=== PATIENT | male | born 1940 | race Hispanic/Latino ===

== ENCOUNTER 2020-07-31 12:35 | Outpatient (CLI) | payer MEDICARE, MEDICAID ==
[2020-07-31 14:14] LABS: Anion Gap 14 mmol/L (10-20); BUN (Urea Nitrogen) 17 mg/dL (8.4-25.7); Calc. Creatinine Clearance 0 mL/min (70-130); Calcium 9.3 mg/dL (7.8-10.44); Carbon Dioxide 28 mmol/L (23-31); Chloride 101 mmol/L (98-107); Glucose 193 mg/dL (83-110); Potassium 4.3 mmol/L (3.5-5.1); Sodium 139 mmol/L (136-145)
[2020-07-31 14:15] LABS: PTT 25.9 sec (22.0-33.0); Prothrombin Time 10.3 sec (9.5-12.1)
[2020-07-31 14:29] LABS: Hemoglobin 14.4 g/dL (13.5-17.5); Mean Corpuscular HGB CONC 32.3 g/dL (32.0-36.0); Mean Corpuscular Hemoglobin 30.1 pg (27.0-33.0); Mean Corpuscular Volume 93.1 fl (81.2-95.1); Platelet Count 164 10x3/uL (150-450); RBC Distribution Width 13.9 % (11.5-14.5); Red Blood Cell (RBC) Count 4.79 10x6/uL (4.32-5.72); White Blood Cell (WBC) Count 11.5 10x3/uL (3.5-10.5)
[2020-07-31 14:30] LABS: MDiff Complete? YES
[2020-07-31 14:38] LABS: Band 2 % (5-11); Lymphocytes 48 % (21-51); Monocytes 8 % (0-10); Neutrophil 36 % (42-75); Reactive Lymphocytes 6 % (0-10)
[2020-07-31 14:39] LABS: Platelet Morphology Comment Appears Adequate
[2020-07-31 14:41] LABS: RBC Morphology Normal
[2020-07-31 23:15] LABS: SARS-CoV-2 PCR by NAA Not Detected (NotDetected)
== END 2020-07-31 12:36 | disposition home or self-care (01) ==
LOC: CSHLAB 12:35
PROVIDERS: ATTEND Internal Medicine Cardiovascular Disease
DX: Z01.818 Encounter for other preprocedural examination (principal); Z20.822 Contact with and (suspected) exposure to COVID-19; R94.31 Abnormal electrocardiogram [ECG] [EKG]
CPT/HCPCS: 71046; 80048; 85025; 85610; 85730; 87635; 93005; 93010; U0003; U0005

== ENCOUNTER 2020-08-03 06:11 | Inpatient (IN) | payer MEDICARE, MEDICAID ==
[2020-08-03] MEDS ORDERED: Aspirin Chewable 81 MG TAB ONE (06:50)
[2020-08-03] MEDS ORDERED: Phenylephrine 40 MG in Sodium Chloride 0.9% 250 ML 250 ML IVPB SCH (07:00)
[2020-08-03 07:16] VITALS: BMI 24.1
[2020-08-03] MEDS ORDERED: Adenosine 6 MG/2 ML VIAL ONE (07:26)
[2020-08-03] MEDS ORDERED: Lidocaine 1% (PF) 30 ML VIAL ONE (07:26)
[2020-08-03] MEDS ORDERED: Nitroglycerin 50 MG/250 ML BOT 0 ML ONE (07:26)
[2020-08-03] MEDS ORDERED: Heparin 10,000 UNITS/ 10 ML VIAL ONE (07:26)
[2020-08-03] MEDS ORDERED: PHENYLEPHRINE-NS 100 MCG/ML 10 ML SYRINGE ONE (07:28)
[2020-08-03] MEDS ORDERED: Fentanyl 100 MCG/2 ML VIAL ONE (08:43)
[2020-08-03] MEDS ORDERED: Midazolam HCl 5 mg/5 ml Vial ONE (08:44)
[2020-08-03] MEDS ORDERED: Atropine Sulfate 0.4 mg/1 ml Vial ONE (09:39)
[2020-08-03] MEDS ORDERED: Protamine Sulfate 50 MG/5 ML VIAL ONE (09:47)
[2020-08-03] MEDS ORDERED: Mag-Al 1200 mg/1200 mg/30 ML UDCUP PO PRN (10:11)
[2020-08-03] MEDS ORDERED: Milk Of Magnesia 30 ML UDCUP PO PRN (10:11)
[2020-08-03] MEDS ORDERED: Acetaminophen/Codeine 30-300mg Tablet PO PRN (10:11)
[2020-08-03] MEDS ORDERED: Aspirin Chewable 81 MG TAB PO SCH (10:30)
[2020-08-03] MEDS ORDERED: Clopidogrel Bisulfate 300 MG TAB PO SCH (10:30)
[2020-08-03] MEDS: Sodium Chloride 0.9% 1,000 ML IV SCH ×2 (11:05→20:14)
[2020-08-03] MEDS ORDERED: Atorvastatin Calcium 10 MG TAB PO SCH (21:00)
[2020-08-04 04:16] LABS: ALT (SGPT) 11 U/L (8-55); AST (SGOT) 16 U/L (5-34); Albumin 3.4 g/dL (3.4-4.8); Alkaline Phosphatase 61 U/L (40-110); Anion Gap 11 mmol/L (10-20); BUN (Urea Nitrogen) 13 mg/dL (8.4-25.7); Bilirubin, Total 0.3 mg/dL (0.2-1.2); Calc. Creatinine Clearance 81 mL/min (70-130); Calcium 8.3 mg/dL (7.8-10.44); Carbon Dioxide 26 mmol/L (23-31); Chloride 108 mmol/L (98-107); Globulin 2.5 g/dL (2.4-3.5); Glucose 101 mg/dL (83-110); Potassium 4.2 mmol/L (3.5-5.1); Protein, Total 5.9 g/dL (5.8-8.1); Sodium 141 mmol/L (136-145)
[2020-08-04 04:21] LABS: #Eosinphils 0.1 10x3/uL (0.0-0.5); #Monocytes 0.5 10x3/uL (0.0-1.1); #Neutrophils 3.7 10x3/uL (1.5-8.4); %Basophils 0.3 % (0.0-2.0); %Monocytes 5.3 % (0.0-10.0); %Neutrophils 40.1 % (40.0-75.0); Hemoglobin 11.9 g/dL (13.5-17.5); Mean Corpuscular HGB CONC 32.4 g/dL (32.0-36.0); Mean Corpuscular Hemoglobin 30.3 pg (27.0-33.0); Mean Corpuscular Volume 93.4 fl (81.2-95.1); Mean Platelet Volume 11.1 fl (7.4-10.4); Platelet Count 152 10x3/uL (150-450); Red Blood Cell (RBC) Count 3.93 10x6/uL (4.32-5.72); White Blood Cell (WBC) Count 9.1 10x3/uL (3.5-10.5)
[2020-08-04] MEDS: Sodium Chloride 0.9% 1,000 ML IV SCH (05:54)
[2020-08-04] MEDS ORDERED: Levothyroxine Sodium 75 MCG TAB PO SCH (06:00)
[2020-08-04] MEDS ORDERED: Empagliflozin 10 MG TAB PO SCH (09:00)
[2020-08-04] MEDS ORDERED: Losartan Potassium 50 MG TAB PO SCH (09:00)
[2020-08-04] MEDS ORDERED: Aspirin Chewable 81 MG TAB PO SCH (09:00)
[2020-08-04] MEDS ORDERED: Hydrochlorothiazide 25 MG TAB PO SCH (09:00)
[2020-08-04] MEDS ORDERED: Clopidogrel Bisulfate 75 MG TAB PO SCH (09:00)
[2020-08-04 17:10] VITALS: BP 138/76; TEMP 97.9
== END 2020-08-04 17:36 | disposition home or self-care (01) | DRG 36 ==
LOC: CSHSDC 06:11 → CSHICU 10:13 → CSHTELE 08-04 08:13
PROVIDERS: ADMIT Internal Medicine Cardiovascular Disease; ATTEND Internal Medicine Cardiovascular Disease
PROC: 037K34Z Dilation of Right Internal Carotid Artery with Drug-eluting Intraluminal Device, Percutaneous Approach (ICD-10-PCS; principal; 2020-08-03)
PROC: 03JY3ZZ Inspection of Upper Artery, Percutaneous Approach (ICD-10-PCS; 2020-08-03)
DX: I65.23 Occlusion and stenosis of bilateral carotid arteries (principal); Z20.822 Contact with and (suspected) exposure to COVID-19; I25.10 Atherosclerotic heart disease of native coronary artery without angina pectoris; I10 Essential (primary) hypertension; E78.5 Hyperlipidemia, unspecified; K21.9 Gastro-esophageal reflux disease without esophagitis; E03.9 Hypothyroidism, unspecified; N40.0 Benign prostatic hyperplasia without lower urinary tract symptoms; E11.9 Type 2 diabetes mellitus without complications; Z95.5 Presence of coronary angioplasty implant and graft; Z79.84 Long term (current) use of oral hypoglycemic drugs; Z79.82 Long term (current) use of aspirin; Z79.890 Hormone replacement therapy; Z79.899 Other long term (current) drug therapy
CPT/HCPCS: 36224; 36227; 36415; 36416; 37215; 71046; 80048; 80053; 85025; 85347; 85610; 85730; 87635; 93005; 93010; 99152; 99153; C1760; C1874; C1884; C1887; J0153; J0461; J1644; J2001; J2250; J2370; J2720; J3010; J7050; U0003; U0005

== ENCOUNTER 2022-04-27 12:24 | Outpatient (CLI) | payer OTHER, MEDICAID | END 2022-04-27 12:25 | disposition home or self-care (01) | LOC: CSHCP 12:24 | PROVIDERS: ATTEND Internal Medicine Critical Care Medicine | DX: J84.9 Interstitial pulmonary disease, unspecified (principal); J98.4 Other disorders of lung | CPT/HCPCS: 94010; 94726; 94729; 94760 ==

== ENCOUNTER 2024-04-02 12:17 | Outpatient (CLI) | payer MEDICARE, MEDICAID | END 2024-04-02 12:18 | disposition home or self-care (01) | LOC: CSHCP 12:17 | PROVIDERS: ATTEND Internal Medicine Critical Care Medicine | DX: J84.9 Interstitial pulmonary disease, unspecified (principal); J98.4 Other disorders of lung | CPT/HCPCS: 94060; 94726; 94729; 94760 ==